=== PATIENT | female | born 1935 | race Caucasian/White ===

== ENCOUNTER 2021-05-11 16:44 | Inpatient (IN) | payer MEDICARE ==
[~2021-05-11] VITALS: Ht 170.2 cm; Wt 67.2 kg
[2021-05-11 16:53] VITALS: BP 96/50
[2021-05-11 17:38] LABS: HEMATOCRIT 35.4 % (37.0-47.0); HEMOGLOBIN 11.3 gm/dL (12.0-15.0); MCH 28.5 pg (26.0-34.0); MCHC 31.9 g/dL (28.0-37.0); MCV 89.1 fL (80.0-100.0); MPV 9.3 fl. (7.2-11.1); NUCLEATED RBCS 0 /100WBC; PLATELET COUNT* 79 thou/uL (150-400); RBC 3.98 mil/uL (4.20-5.00); RDW-CV 19.3 % (10.5-14.5); WBC 14.1 thou/uL (4.0-11.0)
[2021-05-11 17:56] LABS: ABSOLUTE LYMPHOCYTES 0.4 thou/uL (0.8-5.3); ABSOLUTE MONOCYTES 0.4 thou/uL (0.0-1.2); ABSOLUTE NEUTROPHILS 13.3 thou/uL (1.6-8.1); ANISOCYTOSIS 1+; HYPOCHROMASIA 1+
[2021-05-11 18:08] LABS: URINE BLOOD TRACE (Negative); URINE CLARITY SL CLOUDY; URINE COLOR YELLOW; URINE GLUCOSE-RANDOM NEGATIVE (Negative); URINE KETONES NEGATIVE (Negative); URINE NITRITE-REFLEX NEGATIVE (Negative); URINE PROTEIN NEGATIVE (Negative); URINE UROBILINOGEN 0.2 E.U./dl (0.2-1.0)
[2021-05-11 18:09] LABS: URINE BILIRUBIN 1+ (Negative); URINE LEUKOCYTES-REFLEX 3+ (Negative)
[2021-05-11 18:13] LABS: ICTOTEST (BILI CONFIRMATORY) Negative (Negative)
[2021-05-11 18:16] LABS: BACTERIA-REFLEX >30 Many /HPF (None Seen); CRYSTALS None Seen /LPF (None Seen); HYALINE CASTS >10 Many /LPF (None Seen); MUCUS None Seen strn/LPF (None Seen); SQUAMOUS 4-10 Moderate /LPF (0-3); URINE WBC-REFLEX >25 Many /HPF (0-5)
[2021-05-11 18:17] LABS: URINE RBC 0-2 Rare /HPF (0-2)
[2021-05-11] MEDS ORDERED: ARICEPT10 M1 PO (19:08)
[2021-05-11] MEDS ORDERED: K2-D3 10,000 U1 EACH PO (19:09)
[2021-05-11] MEDS ORDERED: COLACE 100 MG100 MG PO (19:10)
[2021-05-11] MEDS ORDERED: FERRETTS325 MG PO (19:10)
[2021-05-11] MEDS ORDERED: SUPER THERAVIT1 EACH PO (19:11)
[2021-05-11] MEDS ORDERED: OYSTERCAL-D 501 EACH PO (19:11)
[2021-05-11] MEDS ORDERED: NAMENDA 5 MG TAB5 M1 PO (19:11)
[2021-05-11] MEDS ORDERED: KLOR-CON M2020 MEQ PO (19:12)
[2021-05-11] MEDS ORDERED: TRAMADOL 50 MG50 MG PO (19:13)
[2021-05-11] MEDS ORDERED: ZOFRAN4 MG PO (19:14)
[2021-05-11 20:22] VITALS: BP 96/60
[2021-05-11 20:30] VITALS: BP 82/53
[2021-05-11 22:15] LABS: ANION GAP 14 mmol/L (7-16); BUN 125 mg/dL (7-18); CHLORIDE 97 mmol/L (98-107); CO2 17 mmol/L (21-32); CREATININE 8.5 mg/dL (0.6-1.3); GLUCOSE 62 mg/dL (70-99); SODIUM 128 mmol/L (136-145)
[2021-05-11 22:20] LABS: POTASSIUM 6.8 mmol/L (3.5-5.1)
[2021-05-11 22:26] LABS: ALBUMIN 1.8 g/dL (3.4-5.0); ALKALINE PHOSPHATASE 193 U/L (46-116); SGOT 46 U/L (15-37); SGPT 82 U/L (30-65)
[2021-05-11 22:28] LABS: NT-PRO BRAIN NAT PEPTIDE > 35000 pg/mL (<300)
[2021-05-12] VITALS (128 sets, daily range): BP systolic 60–144; BP diastolic 28–97
[2021-05-12 04:14] LABS: ABSOLUTE LYMPHOCYTES 0.5 thou/uL (0.8-5.3); ABSOLUTE MONOCYTES 0.7 thou/uL (0.0-1.2); ABSOLUTE NEUTROPHILS 12.7 thou/uL (1.6-8.1); BASOPHILS 0.2 %; EOSINOPHILS 0.1 %; HEMATOCRIT 31.7 % (37.0-47.0); HEMOGLOBIN 10.3 gm/dL (12.0-15.0); LYMPHOCYTES 3.4 %; MCH 28.5 pg (26.0-34.0); MCHC 32.4 g/dL (28.0-37.0); MCV 87.7 fL (80.0-100.0); MONOCYTES 4.8 %; NUCLEATED RBCS 0 /100WBC; PLATELET COUNT* 67 thou/uL (150-400); POLYS 91.5 %; RBC 3.61 mil/uL (4.20-5.00); RDW-CV 19.7 % (10.5-14.5); WBC 13.9 thou/uL (4.0-11.0)
[2021-05-12 04:34] LABS: ALBUMIN 1.7 g/dL (3.4-5.0); CALCIUM 8.3 mg/dL (8.5-10.1); CREATININE 8.2 mg/dL (0.6-1.3); TOTAL BILIRUBIN 1.8 mg/dL (<0.1-1.0); TOTAL PROTEIN 6.1 g/dL (6.4-8.2)
[2021-05-12 04:41] LABS: POTASSIUM 7.1 mmol/L (3.5-5.1)
[2021-05-12 08:38] LABS: PCO2 27.7 mmHg (35.0-45.0); PO2 82.7 mmHg (75.0-100.0); pH 7.372 (7.340-7.450)
[2021-05-12 09:11] LABS: CALCIUM 8.2 mg/dL (8.5-10.1); CREATININE 8.2 mg/dL (0.6-1.3)
[2021-05-12 09:15] LABS: POTASSIUM 6.1 mmol/L (3.5-5.1)
[2021-05-12 12:30] LABS: CALCIUM 7.9 mg/dL (8.5-10.1); CREATININE 7.6 mg/dL (0.6-1.3)
[2021-05-12 12:37] LABS: POTASSIUM 4.6 mmol/L (3.5-5.1)
--- NOTE | 2021-05-12 13:50 | EKG ---
[place] [address] ELECTROCARDIOGRAM REPORT Name: MARYCHUY CLEVELAND V Room: [address] ADM IN ..#: [id number] Admission: 05/11/21 Attend Phys: Shalom Escobar Discharge: Date of : 37 Date of Service: 05/11/21 1701 Report #: [id number] THIS REPORT FOR: //name// [facility] ED Test Date: 2021-05-11 Test Time: 17:01:49 Pat Name: MARYCHUY CLEVELAND Department: Room: [facility] Gender: F Technology Intern: : 1935 Requested By: Shahbaz Jovel Order Number: [id number] MD: Faizan Ortega Measurements Intervals [place] Rate: 85 P: 71 VA: 184 QRS: -75 QRSD: 132 T: 45 QT: 398 QTc: 474 Interpretive Statements Sinus rhythm Left atrial enlargement Nonspecific IVCD with LAD Inferior infarct, old Anteroseptal infarct, age indeterminate Baseline wander in lead(s) V4,V6 No previous ECG available for comparison Electronically Signed On 05-12-2021 13:50:00 CDT by Faizan Ortega [email or web address] <ELECTRONICALLY SIGNED> By: Faizan Ortega MD, FACC 05/12/21 1350 170 170 Faizan Ortega MD, FAC /EPI
--- NOTE | 2021-05-12 15:17 | 2DMMODE ---
[place] [address] 2 D/M-MODE ECHOCARDIOGRAM Name: MEGHAMARYCHUY Mily Room: [address] IN [facility]#: [id number] Admission: 05/11/21 Attend Phys: Shalom Escobar Discharge: Date of : 37 Date of Service: 05/12/21 1517 Report #: [id number] THIS REPORT FOR: cc: Caden Nazario,Roberth Johnston MD [facility] ~ APPROVED REPORT Study performed: 05/12/2021 13:12:46 EXAM: Comprehensive 2D, Doppler, and color-flow Echocardiogram Patient Location: In-Patient Room #: [facility] Status: routine BSA: 1.68 HR: 85 bpm BP: 124/62 mmHg Rhythm: NSR Other Information Study Quality: Good Indications Cardiomegaly 2D Dimensions IVSd: 7.87 (7-11mm) LVOT Diam: 19.02 (18-24mm) LVDd: 34.24 mm PWd: 6.89 (7-11mm) Ascending Ao: 27.53 (22-36mm) LVDs: 24.96 (25-40mm) Aortic Root: 27.91 mm Volumes Left Atrial Volume (Systole) LA ESV Index: 18.50 mL/m2 Aortic Valve AoV Peak Paddy.: 1.06 m/s AO Peak Gr.: 4.51 mmHg LVOT Max P.36 mmHg AO Mean Gr.: 2.10 mmHg LVOT Mean P.32 mmHg LVOT Max V: 0.92 m/s AO V2 VTI: 22.98 cm LVOT Mean V: 0.51 m/s ROJAS (VTI): 1.96 cm2 LVOT V1 VTI: 15.84 cm AI [place]: 3.24 m/s2 [place] [address] 2 D/M-MODE ECHOCARDIOGRAM Name: MARYCHUY CLEVELAND V Room: [address] IN .R.#: [id number] Admission: 05/11/21 Attend Phys: Shalom Escobar Discharge: Date of : 37 Date of Service: 05/12/21 1517 Report #: [id number] AI PHT: 325.98 ms Mitral Valve E/A Ratio: 0.46 MV Decel. Time: 225.41 ms MV E Max Paddy.: 0.46 m/s MV PHT: 65.37 ms MVA (PHT): 3.37 cm2 TDI E/Lateral E': 5.11 E/Medial E': 9.20 Medial E' Paddy.: 0.05 m/s Lateral E' Paddy.: 0.09 m/s Pulmonary Valve PV Peak Paddy.: 0.64 m/s PV Peak Gr.: 1.65 mmHg Tricuspid Valve RAP Estimate: 5.00 mmHg TR Peak Gr.: 57.92 mmHg RVSP: 62.00 mmHg PA Pressure: 62.00 mmHg Left Ventricle The left ventricle is normal size. There is normal LV segmental wall motion. There is normal left ventricular wall thickness. Left ventricular systolic function is normal. LVEF is 55-60%. Grade I - abnormal relaxation pattern. Right Ventricle Right ventricle is dilated. The right ventricular systolic function is normal. Atria Left atrium is mildly dilated. Right atrium is mildly dilated. Aortic Valve Mild aortic valve sclerosis. Moderate aortic regurgitation. There is no aortic valvular stenosis. Mitral Valve The mitral valve is normal in structure. There is no mitral valve regurgitation noted. No evidence of mitral valve stenosis. Tricuspid Valve The tricuspid valve is normal in structure. Moderate [place] [address] 2 D/M-MODE ECHOCARDIOGRAM Name: MARYCHUY CLEVELAND V Room: [address]#: [id number] Admission: 05/11/21 Attend Phys: Shalom Escobar Discharge: Date of : 37 Date of Service: 05/12/21 1517 Report #: [id number] regurgitation. Moderate pulmonary hypertension. The RVSP is 55-60 mmHg. Pulmonic Valve The pulmonary valve is normal in structure. Mild pulmonic regurgitation. Great Vessels The aortic root is normal in size. IVC is normal in size and collapses >50% with inspiration. Pericardium There is no pericardial effusion. <Conclusion> The left ventricle is normal size. There is normal left ventricular wall thickness. Left ventricular systolic function is normal. LVEF is 55-60%. Grade I - abnormal relaxation pattern. Left atrium is mildly dilated. Right atrium is mildly dilated. Right ventricle is dilated. Mild aortic valve sclerosis. Moderate aortic regurgitation. Moderate tricuspid regurgitation. Moderate pulmonary hypertension. The RVSP is 55-60 mmHg. Mild pulmonic regurgitation. IVC is normal in size and collapses >50% with inspiration. <ELECTRONICALLY SIGNED> By: Roberth Stephenson MD, FACC 05/12/21 151 16 16 Roberth Stephenson MD, FACC /INF
[2021-05-13] VITALS (738 sets, daily range): BP systolic 34–117; BP diastolic 3–75
[2021-05-13 04:38] LABS: ALBUMIN 1.4 g/dL (3.4-5.0); CALCIUM 7.5 mg/dL (8.5-10.1); CREATININE 6.7 mg/dL (0.6-1.3); MAGNESIUM 1.9 mg/dL (1.8-2.4); TOTAL BILIRUBIN 0.9 mg/dL (<0.1-1.0); TOTAL PROTEIN 5.1 g/dL (6.4-8.2)
[2021-05-13 04:39] LABS: POTASSIUM 3.2 mmol/L (3.5-5.1)
[2021-05-13 04:44] LABS: HEMOGLOBIN 9.2 gm/dL (12.0-15.0); MCH 28.4 pg (26.0-34.0); MCHC 32.7 g/dL (28.0-37.0); MPV 9.3 fl. (7.2-11.1); RBC 3.22 mil/uL (4.20-5.00); RDW-CV 20.2 % (10.5-14.5); WBC 12.1 thou/uL (4.0-11.0)
[2021-05-13 12:53] LABS: CALCIUM 7.1 mg/dL (8.5-10.1); CREATININE 6.2 mg/dL (0.6-1.3)
[2021-05-13 12:59] LABS: POTASSIUM 2.9 mmol/L (3.5-5.1)
[2021-05-14] VITALS (13 sets, daily range): BP systolic 22–102; BP diastolic 14–58
--- NOTE | 2021-05-15 14:55 | EKG ---
[place] [address] ELECTROCARDIOGRAM REPORT Name: MARYCHUY CLEVELAND V Room: [address] IN [facility]#: [id number] Admission: 05/11/21 Attend Phys: Shalom Escobar Discharge: 05/14/21 Date of : 37 Date of Service: 05/12/21 1747 Report #: [id number] THIS REPORT FOR: //name// [facility] Test Date: 2021-05-12 Test Time: 17:47:13 Pat Name: MARYCHUY CLEVELAND Department: Room: [address] Gender: F Vp Legal Affairs: - : 1935 Requested By: Shalom Escobar Order Number: [id number] Reading MD: Fazian Ortega Measurements Intervals [place] Rate: 95 P: [place]: QRS: -52 QRSD: 136 T: 63 QT: 409 QTc: 514 Interpretive Statements sinus rhythm Nonspecific IVCD with LAD late transition Artifact in lead(s) I,II,III,aVR,aVL,aVF Compared to ECG 05/11/2021 17:01:49 Atrial abnormality no longer present Myocardial infarct finding no longer present Electronically Signed On 05-15-2021 14:55:15 CDT by Faizan Ortega [email or web address] <ELECTRONICALLY SIGNED> By: Faizan Ortega MD, [facility] 05/15/21 1455 1747 1747 Faizan Ortega MD, [facility] /EPI
--- NOTE | 2021-05-15 14:58 | EKG ---
[place] [address] ELECTROCARDIOGRAM REPORT Name: MARYCHUY CLEVELAND V Room: [address] IN [facility]#: [id number] Admission: 05/11/21 Attend Phys: Shalom Escobar Discharge: 05/14/21 Date of : 37 Date of Service: 05/14/21 0142 Report #: [id number] THIS REPORT FOR: //name// [facility] Test Date: 2021-05-14 Test Time: 01:42:33 Pat Name: MARYCHUY CLEVELAND Department: Room: [address] Gender: F Sales Service Assistant: - : 1935 Requested By: Shalom Escobar Order Number: [id number] Renetta MD: Faizan Ortega Measurements Intervals [place] Rate: 137 P: [place]: QRS: -73 QRSD: 131 T: 102 QT: 379 QTc: 573 Interpretive Statements rapid atrial fibrillation LBBB left axis Compared to ECG 05/12/2021 17:47:13 atrial fibrillation noted LEFT BUNDLE BRANCH BLOCK seen Electronically Signed On 05-15-2021 14:58:16 CDT by Faizan Ortega [email or web address] <ELECTRONICALLY SIGNED> By: Faizan Ortega MD, [facility] 05/15/21 1458 1 1 Faizan Ortega MD, [facility] /EPI
== END 2021-05-14 05:30 | DRG 871 ==
LOC: M.ERS 16:44 → M.2W 18:00 → M.TBA-ER 18:00 → M.ICU 18:00 → M.2W 20:27 → M.TBA-ER 22:47 → M.2W 22:54 → M.ICU 05-12 08:40
PROVIDERS: Family Medicine; Internal Medicine; Internal Medicine Nephrology; ADMIT Internal Medicine; ATTEND Internal Medicine
DX: A41.9 Sepsis, unspecified organism (principal); G93.41 Metabolic encephalopathy; J15.6 Pneumonia due to other Gram-negative bacteria; I26.99 Other pulmonary embolism without acute cor pulmonale; N39.0 Urinary tract infection, site not specified; E87.2 Acidosis; E46 Unspecified protein-calorie malnutrition; N17.9 Acute kidney failure, unspecified; I82.412 Acute embolism and thrombosis of left femoral vein; I82.432 Acute embolism and thrombosis of left popliteal vein; R65.20 Severe sepsis without septic shock; Z20.822 Contact with and (suspected) exposure to COVID-19; Z66 Do not resuscitate; N18.30 Chronic kidney disease, stage 3 unspecified; F03.90 Unspecified dementia, unspecified severity, without behavioral disturbance, psychotic disturbance, mood disturbance, and anxiety; E78.5 Hyperlipidemia, unspecified; K21.9 Gastro-esophageal reflux disease without esophagitis; F32.9 Major depressive disorder, single episode, unspecified; I46.9 Cardiac arrest, cause unspecified; F41.9 Anxiety disorder, unspecified; E87.5 Hyperkalemia; E86.9 Volume depletion, unspecified; D64.9 Anemia, unspecified; I95.9 Hypotension, unspecified; D69.6 Thrombocytopenia, unspecified; I50.9 Heart failure, unspecified; I27.20 Pulmonary hypertension, unspecified; Z88.6 Allergy status to analgesic agent; Z68.23 Body mass index [BMI] 23.0-23.9, adult; Z28.21 Immunization not carried out because of patient refusal